=== PATIENT | male | born 1990 | race Caucasian/White ===

== ENCOUNTER 2021-02-11 12:34 | Emergency (ER) | payer SELFPAY ==
[~2021-02-11] VITALS: Ht 175.3 cm; Wt 74.9 kg
[2021-02-11 12:36] VITALS: BP 124/76
--- NOTE | 2021-02-11 12:55 | PHYS DOC ---
Past History Past Medical History: No Pertinent History Past Surgical History: No Surgical History Adult General Chief Complaint Chief Complaint: DENTAL PROBLEM HPI HPI Patient is a 30-year-old male presenting for anterior neck pain. Onset was meche roximately 2 weeks ago without any known inciting event, ingestion or trauma. Nothing known makes better or worse. Patient denies any focal pain but admits recent nasal discharge, postnasal drip and pain with palpation of " BB-like things near my neck". He has had no fever. No medical issues, no daily medications taken Review of Systems Review of Systems Fourteen body systems of review of systems have been reviewed. See HPI for pertinent positives and negative responses, other robertson all other systems are negative, non-pertinent or non-contributory Physical Exam Physical Exam General: Appears well, non toxic, and comfortable Skin: Warm, dry. Normal for ethnicity. HEENT: Atraumatic. PERRLA. Rhinorrhea and postnasal drip present. Nasal turbinates unremarkable b/l. Moist mucous membranes. Uvula midline. Maintaining secretions. No phonation changes. Neck: Trachea midline. Normal ROM without meningeal signs. No stridor. Anterior cervical lymphadenopathy most prominent on right side submandibular lymph nodes present and tender with palpation Respiratory: Normal WOB. CTAB w/o w/r/r. No tachypnea. Cardiovascular: Regular rate and rhythm. Normal peripheral perfusion. Abdomen: Soft. Non tender. No distension. Back: Normal ROM. Musculoskeletal: No swelling or deformity. Neuro: Alert and oriented x 4. MAEE. Lymph: No cervical LAD. Psych: Normal affect and mood. Current Patient Data Vital Signs Vital Signs Date Time Temp Pulse Resp B/P (MAP) Pulse Ox O2 Delivery O2 Flow Rate FiO2 02/11/21 12:36 98.3 73 17 124/76 (92) 99 Room Air Vital Signs Date Time Temp Pulse Resp B/P (MAP) Pulse Ox O2 Delivery O2 Flow Rate FiO2 02/11/21 12:36 98.3 73 17 124/76 (92) 99 Room Air EKG EKG [] Radiology/Procedures Radiology/Procedures [] Heart Score C/O Chest Pain: No HEART Score for Chest Pain: HEART Score for Chest Pain Response (Comments) Value History Slighlty/Non-Suspicious 0 Age < 45 0 Risk Factors No Risk Factors 0 Total 0 Risk Factors: Risk Factors: DM, Current or recent (<one month) smoker, HTN, HLP, family history of CAD, obesity. Risk Scores: Risk Factors: DM, Current or recent (<one month) smoker, HTN, HLP, family history of CAD, obesity. Course & Med Decision Making Course & Med Decision Making Hemodynamically stable patient with HPI and physical exam most consistent with symptomatic postnasal drip and subsequent cervical lymphadenopathy. I disclose no indication for further diagnostic work-up required in ER setting. I disclose no indication for antibiotic or other aggressive medical intervention Supportive care advised. I advised patient to start daily antihistamine and intranasal corticosteroid for allergies. I also advised patient to utilize warm compresses and ibuprofen for symptomatic relief of cervical lymphadenopathy I discussed need to establish care with PCP for continuity of care in outpatient setting and for repeat evaluation. I did disclose this might be an acute presentation more concerning pathology and further diagnostic work-up and/or antibiotics could be required Strict return precautions were discussed with good understanding by patient, all questions and concerns addressed prior to ER departure Sh[place]on Disclaimer Dragon Disclaimer This electronic medical record was generated, in whole or in part, using a voice recognition dictation system. Departure Departure: Impression: Primary Impression: Anterior cervical adenopathy Additional Impression: Post-nasal drip Disposition: HOME / SELF CARE / HOMELESS Condition: GOOD Referrals: PCP,NO (PCP) Additional Instructions: As discussed prior to ER departure, your history and physical examination was most consistent with symptomatic postnasal drip and subsequent anterior cervical lymphadenopathy. There is no indication for further diagnostic work-up and/or intervention while in ER setting. As discussed, it is important for you to start allergy medication and treat your lymphadenopathy with supportive care utilizing ibuprofen for pain and heating pads topically. Please fill prescribed medications and use as directed to completion. It is important for you to establish care with a local primary care physician for continuity of care and repeat evaluation as needed if symptoms do not improve. If any concerning signs or symptoms present prior to outpatient follow-up please do not hesitate to come back for repeat evaluation. It was a pleasure to take care of you and I wish you a speedy recovery Scripts Ibuprofen (IBUPROFEN) 800 Mg Tablet 1 TAB PO TID for PAIN, #30 TAB 1 Refill Prov: SETH ABARCA DO 02/11/21 Fluticasone Propionate (Flonase Allergy Relief) 9.9 Ml [place].susp 2 SPRAYS NS DAILY for ALLERGIES, #1 ML Prov: SETH ABARCA DO 02/11/21 Cetirizine Hcl (ZYRTEC) 10 Mg Tablet 1 TAB PO DAILY for ALLERGIES, #30 TAB 2 Refills Prov: SETH ABARCA DO 02/11/21 Problem Qualifiers SETH ABARCA DO Feb 11, 2021 12:54
[2021-02-11] MEDS ORDERED: CETI10TA74 PO (13:04)
[2021-02-11] MEDS ORDERED: IBUP800T19 PO (13:04)
[2021-02-11] MEDS ORDERED: FLUT9.9S NS (13:04)
== END 2021-02-11 13:22 | disposition home or self-care (01) ==
LOC: ER 12:34
DX: R59.0 Localized enlarged lymph nodes (principal); R09.82 Postnasal drip
CPT/HCPCS: 99283